=== PATIENT | female | born 1970 | race Caucasian/White ===

== ENCOUNTER 2021-10-09 13:00 | Outpatient (RCR) | payer MEDICARE, OTHER, MEDICAID, SELFPAY ==
[2021-10-09 13:05] VITALS: BP 113/66; PULSE 79; TEMP 36.1; O2SAT 97
[2021-10-09] MEDS: diphenhydrAMINE HCl CAP 25 MG CAPSULE PO (13:11)
[2021-10-09] MEDS: ACETAMINOPHEN 325 MG TABLET 650 MG PO (13:11)
[2021-10-09] MEDS: FAMOTIDINE 20 MG TABLET PO (13:12)
[2021-10-09] MEDS: BEBTELOVIMAB 175 MG/2 ML VIAL IV PUSH (13:29)
[2021-10-09 14:08] VITALS: BP 112/58; PULSE 81; O2SAT 96
== END 2021-10-09 16:00 ==
LOC: AMCINF 13:00
PROVIDERS: Referring Provider Physician Assistant; Visit Provider Internal Medicine Hematology & Oncology
DX: U07.1 COVID-19 (principal); E11.9 Type 2 diabetes mellitus without complications
CPT/HCPCS: A9270; M0222; Q0222